=== PATIENT | female | born 1985 | race Caucasian/White ===

== ENCOUNTER → 2017-07-24 | Outpatient (CLI) | payer BC | END | disposition home or self-care (01) | LOC: GMAJ 18:08 | PROVIDERS: ATTEND Family Medicine | DX: R53.83 Other fatigue (principal) ==

== ENCOUNTER 2018-07-19 01:59 | Emergency (ER) | payer BC ==
--- NOTE | 2018-07-19 02:23 | ED.PDOC ---
History of Present Illness - General Chief Complaint: Laceration Stated Complaint: laceration Rt leg Time Seen by Provider: 07/19/18 02:17 Source: patient Exam Limitations: no limitations - History of Present Illness Initial Comments: patient comes in today with laceration to the right leg that was sustained from a deer head that fell off of her mantle that she landed on. Patient states directly afterward occurring she was unable to bear weight on the right leg and does have a large laceration. She is unsure when her last tetanus shot was. She is otherwise healthy and currently on her menses although she is not on control. Patient had no other acute symptoms prior to the injury. Patient denies any head injury, altered LOC, or other trauma. Timing/Duration: just prior to arrival Severity: moderate Location: extremities Improving Factors: immobilization Worsening Factors: movement Associated Symptoms: denies symptoms Allergies/Adverse Reactions: Allergies NO KNOWN ALLERGY Allergy (Verified 04/30/16 23:24) Home Medications: Ambulatory Orders Acetaminophen [Tylenol] 325 mg PO 04/30/16 Vit W/ Ferrous Fumara [] 1 tab PO 04/30/16 diphenhydrAMINE HCL [Benadryl] 25 mg PO 04/30/16 Review of Systems - Review of Systems Constitutional: States: no symptoms reported EENTM: States: no symptoms reported Respiratory: States: no symptoms reported Cardiology: States: no symptoms reported Gastrointestinal/Abdominal: States: no symptoms reported Genitourinary: States: no symptoms reported Skin: States: see HPI Past Medical History (General) - Patient Medical History Hx Diabetes: No - Female History Patient : Yes Family Medical History - Family History Father Family History: Unknown Physical Exam - Physical Exam General Appearance: Alert, No apparent distress Eyes, Ears, Nose, Throat Exam: PERRL/EOMI Cardiovascular/Chest: normal peripheral pulses, regular rate, rhythm, no edema, no gallop, no JVD, no murmur Respiratory: chest non-tender, lungs clear, normal breath sounds, no respiratory distress Gastrointestinal/Abdominal: normal bowel sounds Extremity: other - 4 cm laceration to the lateral left leg with no bony deformity Procedures - Laceration/Wound Repair Right Calf Wound Length (cm): 4 Wound's Depth, Shape: into muscle Wound Explored: clean Irrigated w/ Saline (cc's): 30 Betadine Prep?: Yes Anesthesia: 1% Lidocaine Volume Anesthetic (cc's): 10 Wound Debrided: minimal Wound Repaired With: sutures Suture Size/Type: 3:0, vicryl rapide Number of Sutures: 6 Layer Closure?: Yes Deep Layer Suture Size/Type: 3:0, vicryl Number Deep Layer Sutures: 1 Departure - Departure Clinical Impression: Laceration Disposition: Discharge to Home or Self Care Condition: Good Departure Forms: ED Discharge - Pt. Copy, Patient Portal Self Enrollment Instructions: DI for Laceration Repair Referrals: Andrew Walter MD [Primary Care Provider] - 1-2 Weeks Home Medications: Ambulatory Orders Acetaminophen [Tylenol] 325 mg PO 04/30/16 Vit W/ Ferrous Fumara [] 1 tab PO 04/30/16 diphenhydrAMINE HCL [Benadryl] 25 mg PO 04/30/16 Additional Instructions: suture removal in 7-10 days. OTC IBU and ice the area TID. keep area clean with warm soapy water and pat dry. Do not soak suture area. Return to ER for temp >100.5, redness, or purulence.
[2018-07-19 02:26] VITALS: TEMP 98.7
--- NOTE | 2018-07-19 02:31 | RAD ---
Examination: XR TIBIA FIBULA 2 VIEWS dated 07/19/2018 2:17 AM CDT History: pain, trauma Comparison: None Technique: Two views right tibia and fibula. Findings and impression: No acute fracture or dislocation of the tibia and fibula. Subcutaneous emphysema seen along the lateral aspect of the upper leg. Electronically signed by: Andrew Parra MD 07/19/2018 2:30 AM CDT
[2018-07-19] MEDS ORDERED: LIDOCAINE 1% 10 ML VIAL INJ ONE (02:32)
[2018-07-19] MEDS ORDERED: POVIDONE IODINE 10 % 15 ML UD TOP ONE (02:32)
[2018-07-19] MEDS ORDERED: TETANUS,DIPHTHERIA,PERTUSSIS 1 EA SYG IM ONE (03:01)
[2018-07-19] MEDS ORDERED: NEOMYCIN-BACITRACIN-POLYMYXIN 0.9 GM UD TOP ONE (03:27)
[2018-07-19 04:46] VITALS: BP 117/81; O2SAT 99
== END 2018-07-19 03:36 | disposition home or self-care (01) ==
LOC: ER 01:59
DX: S81.811A Laceration without foreign body, right lower leg, initial encounter (principal); W20.8XXA Other cause of strike by thrown, projected or falling object, initial encounter; Y92.009 Unspecified place in unspecified non-institutional (private) residence as the place of occurrence of the external cause; Z23 Encounter for immunization

== ENCOUNTER → 2018-10-07 | Outpatient (CLI) | payer BC ==
[~2018-10-07] MED LIST: KETOROLAC TROMETHAMINE INJ 30 MG/ML VIAL IV ONE; MAGNESIUM SULFATE IVPB ONE; METOCLOPRAMIDE HCL INJ 10 MG/2 ML VIAL IV ONE; SODIUM CHL 0.9% IVPB ONE; SODIUM CHLORIDE 0.9% IVPB ONE; VALPROATE SODIUM IVPB ONE; diphenhydrAMINE HCL 50 MG/ML VIAL IV ONE; methylPREDNISolone SODIUM SUC 1,000 MG in SODIUM CHLORIDE 0.9% 250ML 250 ML IVPB ONE
[2018-10-07 18:08] VITALS: O2SAT 96
[2018-10-07 18:48] VITALS: TEMP 98.2
[2018-10-07 20:48] VITALS: BP 98/60
== END ==
LOC: INFRM 16:27
DX: G43.719 Chronic migraine without aura, intractable, without status migrainosus (principal)
CPT/HCPCS: 96366; 96367; 96374; 96375; G0463; J1200; J1885; J2765; J2920; J3475; J7050

== ENCOUNTER → 2019-01-15 | Outpatient (CLI) | payer BC | LOC: YCFC.O 11:24 | PROVIDERS: ATTEND Nurse Practitioner Family | DX: N91.2 Amenorrhea, unspecified (principal) ==

== ENCOUNTER → 2019-01-18 | Outpatient (CLI) | payer BC | LOC: YCFC.O 10:44 | PROVIDERS: ATTEND Nurse Practitioner Family | DX: N91.2 Amenorrhea, unspecified (principal) ==

== ENCOUNTER 2019-11-06 16:05 | Emergency (ER) | payer BC ==
[2019-11-06 16:28] VITALS: TEMP 97.6
[2019-11-06] MEDS ORDERED: PROCHLORPERAZINE INJ 10 MG/2 ML VIAL IV ONE (16:31)
[2019-11-06] MEDS ORDERED: KETOROLAC TROMETHAMINE INJ 30 MG/ML VIAL IV ONE (16:31)
[2019-11-06] MEDS ORDERED: SODIUM CHLORIDE 0.9% 1000ML 1,000 ML IVS ONE (16:31)
[2019-11-06] MEDS ORDERED: MAGNESIUM SULFATE INJ 1 GM in SODIUM CHLORIDE 0.9% 100ML 100 ML IVPB ONE (16:31)
[2019-11-06] MEDS ORDERED: MAGNESIUM SULFATE INJ 1 GM/2 ML VIAL ONE (16:57)
[2019-11-06] MEDS ORDERED: SODIUM CHLORIDE 0.9% 100ML 100 ML IVPB ONE (16:58)
[2019-11-06] MEDS ORDERED: HYDROmorphone HCL INJ 2 MG/ML VIAL IV ONE (17:38)
[2019-11-06] MEDS ORDERED: ONDANSETRON INJ 4 MG/2 ML VIAL IV ONE (17:38)
--- NOTE | 2019-11-06 17:46 | ED.PDOC ---
History of Present Illness - General Chief Complaint: Headache Stated Complaint: Intractable migraine x 3 days Time Seen by Provider: 11/06/19 16:30 Source: patient, RN notes reviewed, Vital Signs reviewed Exam Limitations: no limitations - History of Present Illness Initial Comments: Patient is a 34-year-old white female who is complaining of migraine headache x3 days. She is approximately 7 weeks . Patient has been utilizing her home medications, including Imitrex, ibuprofen and Phenergan for pain and nausea control without success. The headache is throbbing in nature, it is 10 out of 10, it is constant, it is similar in nature to her previous migraine headaches other than being unremitting. Patient denies any trauma. She denies any neck stiffness or fever. There is blurry vision but this usually occurs when she gets a migraine headache. Patient is no longer breast-feeding her child. Quality: severe, constant, throbbing, other - Waxing and waning Head Injury Location: frontal, temporal Recent Head Trauma: frequent headaches Improving Factors: nothing Worsening Factors: other - Loud noises and light Associated Symptoms: nausea/vomiting Allergies/Adverse Reactions: Allergies NO KNOWN ALLERGY Allergy (Verified 11/06/19 16:28) Home Medications: Ambulatory Orders Promethazine HCl 50 mg PO PRN PRN 11/06/19 Sumatriptan Succinate [Imitrex] 100 mg PO PRN PRN 11/06/19 Review of Systems - Review of Systems Constitutional: States: no symptoms reported, see HPI. Denies: chills, fever EENTM: States: see HPI, blurred vision - Normal with her migraines. Denies: double vision, nose pain, throat pain, mouth pain Respiratory: States: no symptoms reported. Denies: cough, short of breath Cardiology: States: no symptoms reported. Denies: chest pain, palpitations, syncope Gastrointestinal/Abdominal: States: see HPI, nausea. Denies: diarrhea, vomiting Musculoskeletal: States: no symptoms reported. Denies: back pain Skin: States: no symptoms reported Neurological: States: see HPI, headache. Denies: numbness, paresthesia, seizure, tremors Endocrine: States: no symptoms reported Hematologic/Lymphatic: States: no symptoms reported All other Systems: Reviewed and Negative Past Medical History (General) - Patient Medical History Hx Seizures: No Hx Stroke: No Hx Asthma: No Hx of COPD: No Hx Congestive Heart Failure: No Hx Hypertension: No Hx Diabetes: No Hx Renal Disease: No Hx Cancer: No Surgical History: no surgical history - Vaccination History Hx Tetanus, Diphtheria Vaccination: Yes Hx Influenza Vaccination: Yes Hx Pneumococcal Vaccination: No - Social History Hx Tobacco Use: No Hx Alcohol Use: No Hx Substance Use: No Hx Substance Use Treatment: No Hx Depression: No - Female History Patient is a Female of Child Bearing Age (10 -59 yrs old): Yes Patient : No - 7 weeks Family Medical History - Family History Father Family History: No Known Living Status: Still Living Physical Exam - Physical Exam General Appearance: Alert, Anxious, Obvious distress, Well Developed, Well Groomed, Well Hydrated, Well Nourished Eyes, Ears, Nose, Throat Exam: PERRL/EOMI, normal ENT inspection, pharynx normal Neck: non-tender, full range of motion, supple, normal inspection, trachea midline Cardiovascular/Chest: normal peripheral pulses, regular rate, rhythm, no edema, no gallop, no JVD, no murmur Respiratory: chest non-tender, lungs clear, normal breath sounds, no respiratory distress, no accessory muscle use Gastrointestinal/Abdominal: normal bowel sounds, non tender, soft, no organome marivel, no pulsatile mass Back Exam: normal inspection, no CVA tenderness, no vertebral tenderness Extremity: normal range of motion, non-tender, normal inspection, no pedal edema, no calf tenderness Mental Status: alert, 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 11/06/19 19:19 After patient was given a cocktail of Toradol IV, Compazine IV, max museum sulfate IV patient's headache went from a 9 to a 7. She was given half milligram of Dilaudid IV and headache is now down to a 2/10. Plan on discharge home at this time. Patient is to continue utilizing her regular migraine headache medications. I discussed the plan of care with the patient she voices understanding and agreement. Mani Perry M.D. #[id number] - EKG/XRAY/CT CT Ordered: No Departure - Departure Clinical Impression: Dehydration Migraine headache without aura Qualifiers: Status migrainosus presence: without status migrainosus Intractability: not intractable Qualified Code(s): G43.009 - Migraine without aura, not intractable, without status migrainosus Time of Disposition: 19:21 Disposition: Discharge to Home or Self Care Condition: Good Departure Forms: ED Discharge - Pt. Copy, Patient Portal Self Enrollment Instructions: DI for Headache Activity: increase activity as tolerated Referrals: Andrew Walter MD [Primary Care Provider] - 1-5 Days Home Medications: Ambulatory Orders Promethazine HCl 50 mg PO PRN PRN 11/06/19 Sumatriptan Succinate [Imitrex] 100 mg PO PRN PRN 11/06/19
[2019-11-06 19:04] VITALS: BP 103/58; O2SAT 96
== END 2019-11-06 19:26 | disposition home or self-care (01) ==
LOC: ER 16:05
DX: G43.009 Migraine without aura, not intractable, without status migrainosus (principal); E86.0 Dehydration
CPT/HCPCS: J0780; J1170; J1885; J2405; J3475; J7030; J7050

== ENCOUNTER → 2020-03-14 | Outpatient (CLI) | payer BC | LOC: GMAJ 16:42 | PROVIDERS: ATTEND Family Medicine | DX: R53.83 Other fatigue (principal) ==

== ENCOUNTER → 2020-04-12 | Outpatient (CLI) | payer BC ==
--- NOTE | 2020-04-13 09:11 | US ---
EXAM DESCRIPTION: Breast,Left: Ultrasound CLINICAL HISTORY: 34 yearsFemaleLU[age] IN LEFT BREAST size of a quarter. Inferior left breast. One-week duration. Menarche age 12. Childbirth age 31. Premenopausal. No HRT Lifetime risk of developing breast cancer (Tyrer-Cuzick model)(%): Not calculated due to age less than 35 years. COMPARISON: None. TECHNIQUE: Transcutaneous scanning of the left breast utilizing quick-scale and Doppler modes. Scanning performed by the custom wood stair builder ; observation by Dr. Light. FINDINGS: Ultrasound: Scanning inferior left breast. Emphasis 3 cm from the nipple at 6:00. Mostly fibroglandular tissues with anterior fat. No dominant solid mass, no distinct cyst, no fluid collection, no large calcifications. No overlying skin changes. IMPRESSION: No suspicious or significant imaging findings. BI-RADS CATEGORY: 1 - NEGATIVE RECOMMENDATIONS: FOLLOW UP: The region of interest should be followed on clinical grounds, and if noted to change in size or character, a targeted/directed follow-up on US examination may be performed. Routine digital bilateral screening, beginning at age 40. Written communication explaining the findings and follow-up, will be mailed to the patient and referring health care provider. The FINDINGS and the FOLLOW-UP plan were reviewed in person with the patient after the examination. According to the [employer], yearly mammograms are recommended starting at age 40 and continuing as long as a woman is in good health. Any breast change noted on a breast self-exam should be reported promptly to the patient's healthcare provider. Breast MRI is recommended for women with an approximately 20-25% or greater lifetime risk of breast cancer, including women with a strong family history of breast or ovarian cancer and women who have been treated for Hodgkin's disease. A negative mammographic report should not delay tissue diagnosis in patients with significant clinical history or physical findings. Extremely dense breast tissue limits the sensitivity of digital mammography. Electronically signed by: Ar Light MD 04/13/2020 9:09 AM CDT
== END ==
LOC: US 09:26
PROVIDERS: ATTEND Family Medicine
DX: N63.20 Unspecified lump in the left breast, unspecified quadrant (principal)